=== PATIENT | male | born 1980 | race Caucasian/White ===

== ENCOUNTER → 2017-03-12 | Outpatient (CLI) | payer MEDICARE, MEDICAID ==
[~2017-03-12] MED LIST: GEMF600T3 PO; METO100T5 PO; OMEP-110 PO; PRED20TA PO
== END | disposition home or self-care (01) ==
LOC: WOUND 09:55
PROVIDERS: ATTEND Physician Assistant
DX: L89.521 Pressure ulcer of left ankle, stage 1 (principal); L89.891 Pressure ulcer of other site, stage 1; M14.672 Charcot's joint, left ankle and foot; M14.671 Charcot's joint, right ankle and foot
CPT/HCPCS: 97597; G0463; WOU0463

== ENCOUNTER 2018-06-10 14:09 | Outpatient (CLI) | payer MEDICARE, MEDICAID ==
[~2018-06-10 14:09] MED LIST changes: -GEMF600T3 PO; +GEMF600T4 PO
== END 2018-06-17 14:47 | disposition home or self-care (01) ==
LOC: WOUND 14:09
PROVIDERS: ATTEND Internal Medicine
DX: L89.893 Pressure ulcer of other site, stage 3 (principal); D86.9 Sarcoidosis, unspecified; I09.9 Rheumatic heart disease, unspecified; N18.9 Chronic kidney disease, unspecified; G60.0 Hereditary motor and sensory neuropathy
CPT/HCPCS: 97597; G0463

== ENCOUNTER → 2018-06-17 | Outpatient (CLI) | payer MEDICARE, MEDICAID | END | disposition home or self-care (01) | LOC: WOUND 14:08 | PROVIDERS: ATTEND Internal Medicine | DX: L89.893 Pressure ulcer of other site, stage 3 (principal); I12.9 Hypertensive chronic kidney disease with stage 1 through stage 4 chronic kidney disease, or unspecified chronic kidney disease; N18.2 Chronic kidney disease, stage 2 (mild); G47.33 Obstructive sleep apnea (adult) (pediatric); E78.5 Hyperlipidemia, unspecified; K21.9 Gastro-esophageal reflux disease without esophagitis; D86.9 Sarcoidosis, unspecified; I09.9 Rheumatic heart disease, unspecified; G60.0 Hereditary motor and sensory neuropathy; G62.9 Polyneuropathy, unspecified; E66.01 Morbid (severe) obesity due to excess calories; Z68.43 Body mass index [BMI] 50.0-59.9, adult | CPT/HCPCS: 97597 ==

== ENCOUNTER → 2018-06-24 | Outpatient (CLI) | payer MEDICARE, MEDICAID | END | disposition home or self-care (01) | LOC: WOUND 13:57 | PROVIDERS: ATTEND Internal Medicine | DX: L89.893 Pressure ulcer of other site, stage 3 (principal); I12.9 Hypertensive chronic kidney disease with stage 1 through stage 4 chronic kidney disease, or unspecified chronic kidney disease; N18.2 Chronic kidney disease, stage 2 (mild); D86.9 Sarcoidosis, unspecified; I09.9 Rheumatic heart disease, unspecified; G60.0 Hereditary motor and sensory neuropathy; G62.9 Polyneuropathy, unspecified; G47.33 Obstructive sleep apnea (adult) (pediatric); E78.5 Hyperlipidemia, unspecified; E66.01 Morbid (severe) obesity due to excess calories; K21.9 Gastro-esophageal reflux disease without esophagitis | CPT/HCPCS: 97597 ==

== ENCOUNTER → 2018-07-03 | Outpatient (CLI) | payer MEDICARE, MEDICAID | END | disposition home or self-care (01) | LOC: WOUND 14:34 | PROVIDERS: ATTEND Internal Medicine | DX: L89.893 Pressure ulcer of other site, stage 3 (principal); L97.521 Non-pressure chronic ulcer of other part of left foot limited to breakdown of skin; I13.10 Hypertensive heart and chronic kidney disease without heart failure, with stage 1 through stage 4 chronic kidney disease, or unspecified chronic kidney disease; N18.2 Chronic kidney disease, stage 2 (mild); G47.33 Obstructive sleep apnea (adult) (pediatric); E78.5 Hyperlipidemia, unspecified; K21.9 Gastro-esophageal reflux disease without esophagitis; D86.9 Sarcoidosis, unspecified; I09.9 Rheumatic heart disease, unspecified; G60.0 Hereditary motor and sensory neuropathy; G62.9 Polyneuropathy, unspecified; E66.01 Morbid (severe) obesity due to excess calories; Z68.43 Body mass index [BMI] 50.0-59.9, adult | CPT/HCPCS: 97597 ==

== ENCOUNTER → 2018-07-15 | Outpatient (CLI) | payer MEDICARE, MEDICAID | END | disposition home or self-care (01) | LOC: WOUND 14:56 | PROVIDERS: ATTEND Internal Medicine | DX: L89.893 Pressure ulcer of other site, stage 3 (principal); I13.10 Hypertensive heart and chronic kidney disease without heart failure, with stage 1 through stage 4 chronic kidney disease, or unspecified chronic kidney disease; N18.2 Chronic kidney disease, stage 2 (mild); G47.33 Obstructive sleep apnea (adult) (pediatric); E78.5 Hyperlipidemia, unspecified; K21.9 Gastro-esophageal reflux disease without esophagitis; G62.9 Polyneuropathy, unspecified; E66.01 Morbid (severe) obesity due to excess calories; Z68.43 Body mass index [BMI] 50.0-59.9, adult | CPT/HCPCS: 97597 ==

== ENCOUNTER 2018-07-24 14:26 | Outpatient (CLI) | payer MEDICARE, MEDICAID ==
[~2018-07-24 14:26] MED LIST changes: -GEMF600T4 PO; +GEMF600T8 PO
== END 2018-07-24 23:59 | disposition home or self-care (01) ==
LOC: WOUND 14:26
PROVIDERS: ATTEND Internal Medicine
DX: L89.893 Pressure ulcer of other site, stage 3 (principal); L97.521 Non-pressure chronic ulcer of other part of left foot limited to breakdown of skin; G47.33 Obstructive sleep apnea (adult) (pediatric); D86.9 Sarcoidosis, unspecified; G60.0 Hereditary motor and sensory neuropathy; I12.9 Hypertensive chronic kidney disease with stage 1 through stage 4 chronic kidney disease, or unspecified chronic kidney disease; N18.2 Chronic kidney disease, stage 2 (mild); E78.5 Hyperlipidemia, unspecified; G47.30 Sleep apnea, unspecified; G62.9 Polyneuropathy, unspecified; I09.9 Rheumatic heart disease, unspecified; K21.9 Gastro-esophageal reflux disease without esophagitis; E66.01 Morbid (severe) obesity due to excess calories; Z68.43 Body mass index [BMI] 50.0-59.9, adult
CPT/HCPCS: 97597

== ENCOUNTER → 2018-07-31 | Outpatient (CLI) | payer MEDICARE, MEDICAID | END | disposition home or self-care (01) | LOC: WOUND 14:38 | PROVIDERS: ATTEND Internal Medicine | DX: L89.893 Pressure ulcer of other site, stage 3 (principal); L97.521 Non-pressure chronic ulcer of other part of left foot limited to breakdown of skin; D86.9 Sarcoidosis, unspecified; I09.9 Rheumatic heart disease, unspecified; G60.0 Hereditary motor and sensory neuropathy; G62.9 Polyneuropathy, unspecified; I12.9 Hypertensive chronic kidney disease with stage 1 through stage 4 chronic kidney disease, or unspecified chronic kidney disease; N18.2 Chronic kidney disease, stage 2 (mild); L84 Corns and callosities; G47.33 Obstructive sleep apnea (adult) (pediatric); E78.5 Hyperlipidemia, unspecified; K21.9 Gastro-esophageal reflux disease without esophagitis; E66.01 Morbid (severe) obesity due to excess calories; Z68.43 Body mass index [BMI] 50.0-59.9, adult | CPT/HCPCS: 97597 ==

== ENCOUNTER → 2018-08-12 | Outpatient (CLI) | payer MEDICARE, MEDICAID | END | disposition home or self-care (01) | LOC: WOUND 14:04 | PROVIDERS: ATTEND Internal Medicine | DX: L89.893 Pressure ulcer of other site, stage 3 (principal); L97.521 Non-pressure chronic ulcer of other part of left foot limited to breakdown of skin; I12.9 Hypertensive chronic kidney disease with stage 1 through stage 4 chronic kidney disease, or unspecified chronic kidney disease; N18.2 Chronic kidney disease, stage 2 (mild); G47.33 Obstructive sleep apnea (adult) (pediatric); E78.5 Hyperlipidemia, unspecified; D86.9 Sarcoidosis, unspecified; I09.9 Rheumatic heart disease, unspecified; G60.0 Hereditary motor and sensory neuropathy; K21.9 Gastro-esophageal reflux disease without esophagitis; E66.01 Morbid (severe) obesity due to excess calories; Z68.42 Body mass index [BMI] 45.0-49.9, adult | CPT/HCPCS: 97597 ==

== ENCOUNTER → 2018-08-26 | Outpatient (CLI) | payer MEDICARE, MEDICAID | END | disposition home or self-care (01) | LOC: WOUND 13:58 | PROVIDERS: ATTEND Family Medicine | DX: L89.893 Pressure ulcer of other site, stage 3 (principal); I12.9 Hypertensive chronic kidney disease with stage 1 through stage 4 chronic kidney disease, or unspecified chronic kidney disease; N18.2 Chronic kidney disease, stage 2 (mild); G47.33 Obstructive sleep apnea (adult) (pediatric); E78.5 Hyperlipidemia, unspecified; G60.0 Hereditary motor and sensory neuropathy; K21.9 Gastro-esophageal reflux disease without esophagitis; E66.01 Morbid (severe) obesity due to excess calories; D86.9 Sarcoidosis, unspecified; Z68.43 Body mass index [BMI] 50.0-59.9, adult | CPT/HCPCS: G0463 ==

== ENCOUNTER 2018-09-09 13:49 | Outpatient (CLI) | payer MEDICARE, MEDICAID | END 2018-09-09 23:59 | disposition home or self-care (01) | LOC: WOUND 13:49 | PROVIDERS: ATTEND Internal Medicine | DX: L89.893 Pressure ulcer of other site, stage 3 (principal); L97.521 Non-pressure chronic ulcer of other part of left foot limited to breakdown of skin; D86.9 Sarcoidosis, unspecified; I09.9 Rheumatic heart disease, unspecified; G60.0 Hereditary motor and sensory neuropathy; I12.9 Hypertensive chronic kidney disease with stage 1 through stage 4 chronic kidney disease, or unspecified chronic kidney disease; N18.2 Chronic kidney disease, stage 2 (mild); L84 Corns and callosities; E78.5 Hyperlipidemia, unspecified; G47.33 Obstructive sleep apnea (adult) (pediatric); K21.9 Gastro-esophageal reflux disease without esophagitis; E66.01 Morbid (severe) obesity due to excess calories; Z68.43 Body mass index [BMI] 50.0-59.9, adult | CPT/HCPCS: 97597 ==

== ENCOUNTER → 2018-09-23 | Outpatient (CLI) | payer MEDICARE, MEDICAID | END | disposition home or self-care (01) | LOC: WOUND 14:17 | PROVIDERS: ATTEND Internal Medicine | DX: L89.893 Pressure ulcer of other site, stage 3 (principal); L97.521 Non-pressure chronic ulcer of other part of left foot limited to breakdown of skin; I13.10 Hypertensive heart and chronic kidney disease without heart failure, with stage 1 through stage 4 chronic kidney disease, or unspecified chronic kidney disease; N18.2 Chronic kidney disease, stage 2 (mild); L84 Corns and callosities; D86.9 Sarcoidosis, unspecified; G62.9 Polyneuropathy, unspecified; E78.5 Hyperlipidemia, unspecified; I09.9 Rheumatic heart disease, unspecified; G60.0 Hereditary motor and sensory neuropathy; E66.01 Morbid (severe) obesity due to excess calories; G47.33 Obstructive sleep apnea (adult) (pediatric); K21.9 Gastro-esophageal reflux disease without esophagitis; Z68.43 Body mass index [BMI] 50.0-59.9, adult | CPT/HCPCS: 11042 ==

== ENCOUNTER 2018-10-07 14:00 | Outpatient (CLI) | payer MEDICARE, MEDICAID | END 2018-10-07 23:59 | disposition home or self-care (01) | LOC: WOUND 14:00 | PROVIDERS: ATTEND Internal Medicine | DX: L89.893 Pressure ulcer of other site, stage 3 (principal); L97.521 Non-pressure chronic ulcer of other part of left foot limited to breakdown of skin; L97.511 Non-pressure chronic ulcer of other part of right foot limited to breakdown of skin; D86.9 Sarcoidosis, unspecified; I09.9 Rheumatic heart disease, unspecified; I13.0 Hypertensive heart and chronic kidney disease with heart failure and stage 1 through stage 4 chronic kidney disease, or unspecified chronic kidney disease; I50.9 Heart failure, unspecified; L84 Corns and callosities; E78.5 Hyperlipidemia, unspecified; G47.33 Obstructive sleep apnea (adult) (pediatric); K21.9 Gastro-esophageal reflux disease without esophagitis; N18.9 Chronic kidney disease, unspecified; G60.0 Hereditary motor and sensory neuropathy; E66.01 Morbid (severe) obesity due to excess calories; Z68.43 Body mass index [BMI] 50.0-59.9, adult | CPT/HCPCS: 97597 ==

== ENCOUNTER → 2018-10-08 | Outpatient (CLI) | payer MEDICARE, MEDICAID | END | disposition home or self-care (01) | LOC: CFH 14:06 | PROVIDERS: ATTEND Internal Medicine | DX: L97.529 Non-pressure chronic ulcer of other part of left foot with unspecified severity (principal) ==

== ENCOUNTER → 2018-10-14 | Outpatient (CLI) | payer MEDICARE, MEDICAID | END | disposition home or self-care (01) | LOC: WOUND 14:00 | PROVIDERS: ATTEND Internal Medicine | DX: L89.893 Pressure ulcer of other site, stage 3 (principal); L97.521 Non-pressure chronic ulcer of other part of left foot limited to breakdown of skin; L97.511 Non-pressure chronic ulcer of other part of right foot limited to breakdown of skin; L89.529 Pressure ulcer of left ankle, unspecified stage; D86.9 Sarcoidosis, unspecified; I09.9 Rheumatic heart disease, unspecified; G60.0 Hereditary motor and sensory neuropathy; I13.0 Hypertensive heart and chronic kidney disease with heart failure and stage 1 through stage 4 chronic kidney disease, or unspecified chronic kidney disease; N18.9 Chronic kidney disease, unspecified; I50.9 Heart failure, unspecified; L84 Corns and callosities; E78.5 Hyperlipidemia, unspecified; G47.33 Obstructive sleep apnea (adult) (pediatric); K21.9 Gastro-esophageal reflux disease without esophagitis; E66.01 Morbid (severe) obesity due to excess calories; Z68.43 Body mass index [BMI] 50.0-59.9, adult | CPT/HCPCS: 97597 ==

== ENCOUNTER 2018-10-28 14:11 | Outpatient (CLI) | payer MEDICARE, MEDICAID | END 2018-10-28 23:59 | disposition home or self-care (01) | LOC: WOUND 14:11 | PROVIDERS: ATTEND Internal Medicine | DX: L97.522 Non-pressure chronic ulcer of other part of left foot with fat layer exposed (principal); L97.321 Non-pressure chronic ulcer of left ankle limited to breakdown of skin; D86.9 Sarcoidosis, unspecified; I09.9 Rheumatic heart disease, unspecified; I13.10 Hypertensive heart and chronic kidney disease without heart failure, with stage 1 through stage 4 chronic kidney disease, or unspecified chronic kidney disease; N18.2 Chronic kidney disease, stage 2 (mild); L84 Corns and callosities; G60.0 Hereditary motor and sensory neuropathy; E78.5 Hyperlipidemia, unspecified; G62.9 Polyneuropathy, unspecified; G47.33 Obstructive sleep apnea (adult) (pediatric); K21.9 Gastro-esophageal reflux disease without esophagitis; M81.0 Age-related osteoporosis without current pathological fracture; E66.01 Morbid (severe) obesity due to excess calories; Z68.43 Body mass index [BMI] 50.0-59.9, adult; Z88.8 Allergy status to other drugs, medicaments and biological substances; Z88.7 Allergy status to serum and vaccine; Z79.52 Long term (current) use of systemic steroids; Z79.899 Other long term (current) drug therapy | CPT/HCPCS: 87070; 87077; 87186; 87205; 97597 ==

== ENCOUNTER 2018-11-15 12:28 | Day surgery (SDC) | payer MEDICARE, MEDICAID ==
[~2018-11-15] VITALS: Ht 170.2 cm; Wt 152.5 kg
[2018-11-15] MEDS ORDERED: BUPIVACAINE/PF 0.5% ONE (13:20)
[2018-11-15] MEDS ORDERED: VANCOMYCIN 1,000 MG ONE (13:21)
[2018-11-15] MEDS ORDERED: LIDOCAINE 1%, 20ML ONE (13:21)
[2018-11-15] MEDS ORDERED: LACTATED RINGERS 1,000 ML IV SCH (13:25)
[2018-11-15] MEDS ORDERED: CLINDAMYCIN 150 MG/ML, 6ML ONE (13:26)
[2018-11-15 13:57] VITALS: BP 131/76
[2018-11-15] MEDS ORDERED: FENTANYL PF 100 MCG/2ML ONE (14:00)
[2018-11-15] MEDS ORDERED: ACETAMINOPHEN 500 MG TABLET PO ONE (14:00)
[2018-11-15] MEDS ORDERED: MIDAZOLAM 1 MG/ML, 2ML ONE (14:00)
[2018-11-15] MEDS ORDERED: CINN500C2 PO (14:20)
[2018-11-15] MEDS ORDERED: UBID100C24 PO (14:20)
[2018-11-15] MEDS ORDERED: PRED10TA PO (14:20)
[2018-11-15] MEDS ORDERED: PRED1TAB PO (14:20)
[2018-11-15] MEDS ORDERED: VITAMIN B12 COMPLEX PO (14:20)
[2018-11-15] MEDS ORDERED: HYDROCORTISONE 100 MG INJ. ONE (15:18)
[2018-11-15] MEDS ORDERED: FENTANYL PF 250 MCG/5ML ONE (15:25)
[2018-11-15] MEDS ORDERED: PROPOFOL 10 MG/ML, 20ML ONE (15:50)
[2018-11-15] MEDS ORDERED: ONDANSETRON 2MG/ML, 2ML ONE (15:50)
[2018-11-15] MEDS ORDERED: DEXAMETHASONE 4 MG/ML, 1ML ONE (15:50)
== END 2018-11-15 18:25 | disposition home or self-care (01) ==
LOC: OUT 12:28
PROVIDERS: ATTEND Orthopaedic Surgery
DX: M24.574 Contracture, right foot (principal); M24.575 Contracture, left foot; L97.529 Non-pressure chronic ulcer of other part of left foot with unspecified severity; L97.519 Non-pressure chronic ulcer of other part of right foot with unspecified severity; G62.9 Polyneuropathy, unspecified; I10 Essential (primary) hypertension; I09.9 Rheumatic heart disease, unspecified; K21.9 Gastro-esophageal reflux disease without esophagitis; D86.9 Sarcoidosis, unspecified; M81.0 Age-related osteoporosis without current pathological fracture; G60.0 Hereditary motor and sensory neuropathy; E66.01 Morbid (severe) obesity due to excess calories; Z68.42 Body mass index [BMI] 45.0-49.9, adult; Z79.52 Long term (current) use of systemic steroids; Z79.899 Other long term (current) drug therapy; Z88.7 Allergy status to serum and vaccine; Z88.8 Allergy status to other drugs, medicaments and biological substances; Z98.890 Other specified postprocedural states
CPT/HCPCS: 28755; 73660; 76000; 87070; 87075; 87077; 87176; 87186; 87205; 93005; C1713; J1720; J2250; J2405; J2704; J3010; J7120; J1100; J3370

== ENCOUNTER 2019-09-23 06:06 | Day surgery (SDC) | payer MEDICARE, MEDICAID ==
[~2019-09-23] VITALS: Ht 170.2 cm; Wt 156.8 kg
[~2019-09-23 06:06] MED LIST changes: +CINN500C2 PO; +PRED10TA PO; +PRED1TAB19 PO; +UBID100C24 PO; +VITAMIN B12 COMPLEX PO
[2019-09-23 06:48] VITALS: BP 133/89
[2019-09-23] MEDS ORDERED: SODIUM CHLORIDE 0.9% 1,000 ML IV SCH (06:49)
[2019-09-23 07:55] LABS: INTERNATIONAL NORMALIZED RATIO 0.94 (0.93-1.1)
[2019-09-23] MEDS ORDERED: FENTANYL PF 100 MCG/2ML ONE ×2 (08:40→08:41)
[2019-09-23] MEDS ORDERED: NALOXONE 1 MG/ML, 2ML ONE (08:41)
[2019-09-23] MEDS ORDERED: FLUMAZENIL 0.1 MG/1 ML, 5ML ONE (08:41)
[2019-09-23] MEDS ORDERED: MIDAZOLAM 1 MG/ML, 5ML ONE (08:41)
== END 2019-09-23 11:00 | disposition home or self-care (01) ==
LOC: OUT 06:06
PROVIDERS: ATTEND Internal Medicine Nephrology
DX: I12.9 Hypertensive chronic kidney disease with stage 1 through stage 4 chronic kidney disease, or unspecified chronic kidney disease (principal); N18.9 Chronic kidney disease, unspecified; R80.9 Proteinuria, unspecified; D86.9 Sarcoidosis, unspecified; Z88.7 Allergy status to serum and vaccine; Z88.8 Allergy status to other drugs, medicaments and biological substances
CPT/HCPCS: 36415; 50200; 77012; 85610; 88300; 88305; 88313; 88346; 88348; 88350; 99156; 99157; J2250; J3010; J7030; J2310

== ENCOUNTER → 2019-12-29 | Outpatient (CLI) | payer MEDICARE, MEDICAID | END | disposition home or self-care (01) | LOC: CFH 13:40 | PROVIDERS: ATTEND Physician Assistant Surgical | DX: S92.215A Nondisplaced fracture of cuboid bone of left foot, initial encounter for closed fracture (principal); S82.302A Unspecified fracture of lower end of left tibia, initial encounter for closed fracture; X58.XXXA Exposure to other specified factors, initial encounter; Y93.89 Activity, other specified; Y92.89 Other specified places as the place of occurrence of the external cause; Y99.8 Other external cause status ==

== ENCOUNTER 2020-09-15 14:12 | Emergency (ER) | payer MEDICARE, MEDICAID ==
[~2020-09-15] VITALS: Ht 170.2 cm; Wt 160.1 kg
[~2020-09-15 14:12] MED LIST changes: +GEMF-31 PO; -GEMF600T8 PO
[2020-09-15] MEDS ORDERED: FAMO20TA7 PO (14:48)
--- NOTE | 2020-09-15 14:48 | NUR ---
PT IS A 40 AUTISTIC MALE WHO LIVES IN A CORRECTION. MOM AT BEDSIDE. HE COMPLAINS OF A YEAST INFECTION IN HIS MOUTH AND ON HIS GROIN WHICH HE HAS BEEN ON NYSTATIN SWISH AND SPIT AND DIFLUCAN X 4 WEEKS. CONTINUOUS SP02 AND BP MONITORS IN PLACE. CALL LIGHT WITHIN REACH.
[2020-09-15 17:09] VITALS: BP 133/67
--- NOTE | 2020-09-15 17:09 | NUR ---
PT IS RESTING COMFORTABLY WITH MOM AT BEDSIDE, AWAITING DISPOSITION. CALL LIGHT WITHIN REACH.
--- NOTE | 2020-09-15 17:43 | NUR ---
Patient/Caregiver given discharge instructions and they have confirmed that they understand the instructions. Patient ambulatory with mom at side.
== END 2020-09-15 17:44 | disposition home or self-care (01) ==
LOC: ED 17:00
DX: B37.2 Candidiasis of skin and nail (principal); Z88.1 Allergy status to other antibiotic agents; Z88.6 Allergy status to analgesic agent
CPT/HCPCS: 99283

== ENCOUNTER 2020-09-22 16:33 | Outpatient (CLI) | payer MEDICARE, MEDICAID ==
[~2020-09-22 16:33] MED LIST changes: +FAMO20TA7 PO
[2020-09-22 17:10] LABS: MICROSCOPIC AUTO
[2020-09-22 17:11] LABS: BASOPHILS % (AUTO) 0 % (0-1); CALCIUM 9.4 mg/dL (8.5-10.1); EOSINOPHILS % (AUTO) 0 % (1-7); LYMPHOCYTES % (AUTO) 6 % (22-44); MEAN CORPUSCULAR HEMOGLOBIN 34.3 pg (27.5-34.5); MEAN CORPUSCULAR HGB CONC 33.3 g/dL (33.2-36.2); MEAN PLATELET VOLUME 7.1 fL (7.4-10.4); MONOCYTES % (AUTO) 1 % (2-9); NEUTROPHILS % (AUTO) 92 % (42-75); PLATELET COUNT 373 x10^3/uL (130-400); RED BLOOD COUNT 3.36 x10^6/uL (4.38-5.82); RED CELL DISTRIBUTION WIDTH 18.3 % (9.4-14.8)
[2020-09-22 17:13] LABS: ALANINE AMINOTRANSFERASE 31 U/L (12-78); ALBUMIN 3.6 g/dL (3.4-5.0); ANION GAP 8 mmol/L (5-15); CALCIUM 9.2 mg/dL (8.5-10.1); CHLORIDE 117 mmol/L (98-107); CREATININE 1.77 mg/dL (0.7-1.3); TOTAL IRON BINDING CAPACITY 307 mcg/dL (250-450)
[2020-09-22 17:14] LABS: MD NO
[2020-09-22 17:17] LABS: % IRON SATURATION 11 % (20-55); ALKALINE PHOSPHATASE 80 U/L (45-117); BILIRUBIN,TOTAL 0.3 mg/dL (0.2-1.0); IRON LEVEL 34 mcg/dL (65-175); TOTAL PROTEIN 7.7 g/dL (6.4-8.2)
[2020-09-22 17:18] LABS: CREATININE,URINE RANDOM 39.7 mg/dL
== END 2020-09-22 23:59 | disposition home or self-care (01) ==
LOC: LAB 16:33
PROVIDERS: ATTEND Internal Medicine Nephrology
DX: N18.2 Chronic kidney disease, stage 2 (mild) (principal); K12.1 Other forms of stomatitis; D86.9 Sarcoidosis, unspecified; G60.0 Hereditary motor and sensory neuropathy; E61.1 Iron deficiency; R80.9 Proteinuria, unspecified; N17.9 Acute kidney failure, unspecified; E78.5 Hyperlipidemia, unspecified; R73.9 Hyperglycemia, unspecified
CPT/HCPCS: 36415; 80053; 81001; 82043; 82306; 82310; 82570; 82728; 83540; 83550; 83735; 83970; 84100; 84156; 84550; 85025; 87102

== ENCOUNTER 2020-11-18 10:59 | Outpatient (CLI) | payer MEDICARE, MEDICAID | END 2020-11-18 23:59 | disposition home or self-care (01) | LOC: WOUND 10:59 | PROVIDERS: ATTEND Podiatrist Foot & Ankle Surgery | DX: L89.529 Pressure ulcer of left ankle, unspecified stage (principal); S91.102D Unspecified open wound of left great toe without damage to nail, subsequent encounter; I12.9 Hypertensive chronic kidney disease with stage 1 through stage 4 chronic kidney disease, or unspecified chronic kidney disease; N18.2 Chronic kidney disease, stage 2 (mild); E78.5 Hyperlipidemia, unspecified; G62.9 Polyneuropathy, unspecified; K21.9 Gastro-esophageal reflux disease without esophagitis; G47.33 Obstructive sleep apnea (adult) (pediatric); L84 Corns and callosities; D86.1 Sarcoidosis of lymph nodes; M24.542 Contracture, left hand; M06.9 Rheumatoid arthritis, unspecified; E55.9 Vitamin D deficiency, unspecified; N17.9 Acute kidney failure, unspecified; E66.01 Morbid (severe) obesity due to excess calories; Z68.43 Body mass index [BMI] 50.0-59.9, adult; Z88.1 Allergy status to other antibiotic agents; Z88.6 Allergy status to analgesic agent; Z79.899 Other long term (current) drug therapy; Z79.52 Long term (current) use of systemic steroids; Z90.49 Acquired absence of other specified parts of digestive tract; X58.XXXD Exposure to other specified factors, subsequent encounter | CPT/HCPCS: 97597 ==

== ENCOUNTER 2020-11-25 14:07 | Outpatient (CLI) | payer MEDICARE, MEDICAID | END 2020-11-25 23:59 | disposition home or self-care (01) | LOC: WOUND 14:07 | PROVIDERS: ATTEND Podiatrist Foot & Ankle Surgery | DX: L89.529 Pressure ulcer of left ankle, unspecified stage (principal); S91.102D Unspecified open wound of left great toe without damage to nail, subsequent encounter; I12.9 Hypertensive chronic kidney disease with stage 1 through stage 4 chronic kidney disease, or unspecified chronic kidney disease; N18.2 Chronic kidney disease, stage 2 (mild); E78.5 Hyperlipidemia, unspecified; G62.9 Polyneuropathy, unspecified; K21.9 Gastro-esophageal reflux disease without esophagitis; G47.33 Obstructive sleep apnea (adult) (pediatric); L84 Corns and callosities; D86.1 Sarcoidosis of lymph nodes; M24.542 Contracture, left hand; M06.9 Rheumatoid arthritis, unspecified; E55.9 Vitamin D deficiency, unspecified; N17.9 Acute kidney failure, unspecified; E66.01 Morbid (severe) obesity due to excess calories; Z68.43 Body mass index [BMI] 50.0-59.9, adult; Z88.1 Allergy status to other antibiotic agents; Z88.6 Allergy status to analgesic agent; Z79.899 Other long term (current) drug therapy; Z79.52 Long term (current) use of systemic steroids; Z90.49 Acquired absence of other specified parts of digestive tract; X58.XXXD Exposure to other specified factors, subsequent encounter | CPT/HCPCS: 97597 ==

== ENCOUNTER → 2020-12-02 | Outpatient (CLI) | payer MEDICARE, MEDICAID | END | disposition home or self-care (01) | LOC: WOUND 14:08 | PROVIDERS: ATTEND Podiatrist Foot & Ankle Surgery | DX: L89.529 Pressure ulcer of left ankle, unspecified stage (principal); B35.1 Tinea unguium; M62.40 Contracture of muscle, unspecified site; G62.9 Polyneuropathy, unspecified; D86.9 Sarcoidosis, unspecified; I12.9 Hypertensive chronic kidney disease with stage 1 through stage 4 chronic kidney disease, or unspecified chronic kidney disease; N18.2 Chronic kidney disease, stage 2 (mild); E78.5 Hyperlipidemia, unspecified; K21.9 Gastro-esophageal reflux disease without esophagitis; M06.9 Rheumatoid arthritis, unspecified; M19.90 Unspecified osteoarthritis, unspecified site; G47.33 Obstructive sleep apnea (adult) (pediatric); E66.01 Morbid (severe) obesity due to excess calories; Z68.43 Body mass index [BMI] 50.0-59.9, adult; Z90.49 Acquired absence of other specified parts of digestive tract | CPT/HCPCS: G0463 ==

== ENCOUNTER → 2020-12-17 | Outpatient (CLI) | payer MEDICARE, MEDICAID | END | disposition home or self-care (01) | LOC: CFH 14:08 | PROVIDERS: ATTEND Physician Assistant | DX: N20.0 Calculus of kidney (principal); N28.89 Other specified disorders of kidney and ureter; K80.20 Calculus of gallbladder without cholecystitis without obstruction | CPT/HCPCS: 74176 ==

== ENCOUNTER → 2020-12-21 | Outpatient (CLI) | payer MEDICARE, MEDICAID | END | disposition home or self-care (01) | LOC: WOUND 14:30 | PROVIDERS: ATTEND Podiatrist Foot & Ankle Surgery | DX: L89.526 Pressure-induced deep tissue damage of left ankle (principal); B35.1 Tinea unguium; M62.40 Contracture of muscle, unspecified site; G62.9 Polyneuropathy, unspecified; D86.9 Sarcoidosis, unspecified; I12.9 Hypertensive chronic kidney disease with stage 1 through stage 4 chronic kidney disease, or unspecified chronic kidney disease; N18.2 Chronic kidney disease, stage 2 (mild); E78.5 Hyperlipidemia, unspecified; K21.9 Gastro-esophageal reflux disease without esophagitis; M06.9 Rheumatoid arthritis, unspecified; M19.90 Unspecified osteoarthritis, unspecified site; M14.672 Charcot's joint, left ankle and foot; M14.671 Charcot's joint, right ankle and foot; G47.33 Obstructive sleep apnea (adult) (pediatric); L84 Corns and callosities; D86.1 Sarcoidosis of lymph nodes; E66.01 Morbid (severe) obesity due to excess calories; Z68.43 Body mass index [BMI] 50.0-59.9, adult; Z90.49 Acquired absence of other specified parts of digestive tract; Z79.899 Other long term (current) drug therapy; Z79.52 Long term (current) use of systemic steroids; Z88.6 Allergy status to analgesic agent; Z88.1 Allergy status to other antibiotic agents | CPT/HCPCS: G0463 ==

== ENCOUNTER → 2020-12-28 | Outpatient (CLI) | payer MEDICARE, MEDICAID | END | disposition home or self-care (01) | LOC: WOUND 13:30 | PROVIDERS: ATTEND Nurse Practitioner Family | DX: L89.526 Pressure-induced deep tissue damage of left ankle (principal); B35.1 Tinea unguium; M62.40 Contracture of muscle, unspecified site; G62.9 Polyneuropathy, unspecified; D86.9 Sarcoidosis, unspecified; I12.9 Hypertensive chronic kidney disease with stage 1 through stage 4 chronic kidney disease, or unspecified chronic kidney disease; N18.2 Chronic kidney disease, stage 2 (mild); E78.5 Hyperlipidemia, unspecified; K21.9 Gastro-esophageal reflux disease without esophagitis; M06.9 Rheumatoid arthritis, unspecified; M19.90 Unspecified osteoarthritis, unspecified site; M14.672 Charcot's joint, left ankle and foot; M14.671 Charcot's joint, right ankle and foot; G47.33 Obstructive sleep apnea (adult) (pediatric); L84 Corns and callosities; D86.1 Sarcoidosis of lymph nodes; E66.01 Morbid (severe) obesity due to excess calories; Z68.43 Body mass index [BMI] 50.0-59.9, adult; Z90.49 Acquired absence of other specified parts of digestive tract; Z79.899 Other long term (current) drug therapy; Z79.52 Long term (current) use of systemic steroids; Z88.6 Allergy status to analgesic agent; Z88.1 Allergy status to other antibiotic agents | CPT/HCPCS: G0463 ==